=== PATIENT | female | born 1940 | race Caucasian/White ===

== ENCOUNTER 2024-12-02 10:41 | Outpatient (CLI) | payer MEDICARE, BC | END 2024-12-02 10:42 | disposition home or self-care (01) | LOC: BICMAMMO 10:41 | PROVIDERS: ATTEND Family Medicine | DX: Z78.0 Asymptomatic menopausal state (principal); E28.39 Other primary ovarian failure; M85.832 Other specified disorders of bone density and structure, left forearm | CPT/HCPCS: 77080 ==